=== PATIENT | female | born 1990 | race Caucasian/White ===

== ENCOUNTER 2020-06-10 08:00 | Outpatient (CLI) | payer OTHER ==
[2020-06-10 17:08] LABS: MUDS CUTOFF CONCENTRATIONS CUTOFF CONC BELOW:
[2020-06-10 17:31] LABS: BILIRUBIN,URINE NEGATIVE (NEGATIVE); GLUCOSE, URINE (UA) NEGATIVE (NEGATIVE); KETONES,URINE (UA) NEGATIVE (NEGATIVE); LEUKOCYTE ESTERASE, URINE NEGATIVE (NEGATIVE); NITRITE,URINE NEGATIVE (NEGATIVE); OCCULT BLOOD,URINE NEGATIVE (NEGATIVE); PH,URINE 7.5 PH (5.0-7.5); PROTEIN,URINE NEGATIVE (NEGATIVE); UROBILINOGEN,URINE 0.2 (NORMAL) E.U./dL (NORMAL)
[2020-06-10 17:33] LABS: CLARITY,URINE CLEAR (CLEAR)
[2020-06-10 17:39] LABS: AMPHETAMINE SCREEN,URINE NEGATIVE (NEGATIVE); BACTERIA,URINE None Seen /HPF (None Seen); BARBITURATE SCREEN,UR NEGATIVE (NEGATIVE); BENZODIAZEPINES SCREEN, URINE NEGATIVE (NEGATIVE); COCAINE SCREEN URINE NEGATIVE (NEGATIVE); METHADONE SCREEN, URINE NEGATIVE (NEGATIVE); METHAMPHETAMINES SCREEN, URINE NEGATIVE (NEGATIVE); OPIATE SCREEN, URINE NEGATIVE (NEGATIVE); OXYCODONE SCREEN, URINE NEGATIVE (NEGATIVE); PROPOXYPHENE SCREEN, URINE NEGATIVE (NEGATIVE); RBC,URINE 0-5 /HPF (0-5); SQUAMOUS EPITHELIAL CELL,UR RARE Squamous (<= Few); THC CANNABINOID SCREEN, URINE NEGATIVE (NEGATIVE); TRICYCLIC ANTIDEPRESSANT,URINE NEGATIVE (NEGATIVE); WBC,URINE 0-3 /HPF (0-5)
== END 2020-06-10 23:59 | disposition home or self-care (01) ==
LOC: LAB.R 08:00
PROVIDERS: ATTEND Obstetrics & Gynecology
DX: Z32.01 Encounter for pregnancy test, result positive (principal)
CPT/HCPCS: 80306; 81001; 87086

== ENCOUNTER 2020-06-15 17:41 | Outpatient (CLI) | payer OTHER ==
--- NOTE | 2020-06-15 19:25 | Ultrasound Report ---
PROCEDURE: OB First Trimester w/TV INDICATIONS: TEST POSITIVE OUTSIDE/PRIOR DATING DATA: Last menstrual period (LMP): 04/25/2020. LMP-based estimated date of delivery (SONIA): 01/30/2021. First dating scan (date and location): 06/15/2020. Estimated date of delivery (SONIA) from first dating scan: 01/28/2021. TECHNIQUE: Real-time scanning was performed of the fetus and maternal pelvic organs, with image documentation. Endovaginal scanning was also performed to better visualize the fetus and maternal ovaries. COMPARISON: None FINDINGS: Embryo: Single intrauterine gestational sac is seen with fetus noted. heart rate is 171 bpm. C rown-rump length measures 1.34 cm. Estimated gestational age is 7 weeks 4 days. Maternal organs: Right ovary is within normal limits. Corpus luteal cyst is seen in left ovary measur es 1.7 x 1.3 x 1.6 cm in size. Trace amount of free fluid is seen in left adnexa. Uterus is retroflex ed. IMPRESSION: 1. Single live intrauterine . heart rate is 171 bpm. Estimated gestational age is 7 we eks, 4 days. 2. Corpus luteal cyst in left ovary measures 1.7 x 1.3 x 1.6 cm in size. Trace amount of left adnexal free fluid. Reviewed by: Mike Lim MD on 06/15/2020 7:24 PM PDT Approved by: Mike Lim MD on 06/15/2020 7:24 PM PDT Station ID: [id number]
== END 2020-06-15 17:42 | disposition home or self-care (01) ==
LOC: DI 17:41
PROVIDERS: ATTEND Obstetrics & Gynecology
DX: O34.81 Maternal care for other abnormalities of pelvic organs, first trimester (principal); N83.12 Corpus luteum cyst of left ovary; Z3A.01 Less than 8 weeks gestation of pregnancy

== ENCOUNTER 2020-07-04 08:00 | Outpatient (CLI) | payer OTHER ==
[2020-07-05 22:26] LABS: CHLAMYDIA TRACHOMATIS DNA NEGATIVE (NEGATIVE); NEISSERIA GONORRHOEAE DNA NEGATIVE (NEGATIVE); TRICHOMONAS VAGINALIS DNA NEGATIVE (NEGATIVE)
== END 2020-07-04 23:59 | disposition home or self-care (01) ==
LOC: LAB.WC 08:00
PROVIDERS: ATTEND Obstetrics & Gynecology
DX: Z36.89 Encounter for other specified antenatal screening (principal)
CPT/HCPCS: 87491; 87591; 87661

== ENCOUNTER 2020-07-16 09:56 | Outpatient (CLI) | payer OTHER ==
[2020-07-16 10:20] LABS: BASOPHILS % (AUTO) 0.5 %; EOSINOPHILS # (AUTO) 0.1 10^3/uL (0.0-0.7); EOSINOPHILS % (AUTO) 0.8 %; HCT - HEMATOCRIT 39.8 % (37.0-47.0); HGB - HEMOGLOBIN 13.6 g/dL (12.0-16.0); LYMPHOCYTES # (AUTO) 2.1 10^3/uL (1.5-3.5); LYMPHOCYTES % (AUTO) 24.9 %; MEAN CORPUSCULAR HEMOGLOBIN 29.1 pg (27.0-31.0); MEAN CORPUSCULAR HGB CONC 34.2 g/dL (32.0-36.0); MEAN CORPUSCULAR VOLUME 85.2 fL (81.0-99.0); MEAN PLATELET VOLUME 9.7 fL (7.9-10.8); MONOCYTES # (AUTO) 0.5 10^3/uL (0.0-1.0); MONOCYTES % (AUTO) 5.6 %; NEUTROPHILS # (AUTO) 5.8 10^3/uL (1.5-6.6); NEUTROPHILS % (AUTO) 67.6 %; PLT - PLATELET COUNT 331 10^3/uL (130-450); RED BLOOD COUNT 4.67 10^6/uL (4.20-5.40); RED CELL DISTRIBUTION WIDTH 13.2 % (12.0-15.0); WHITE BLOOD COUNT 8.6 x10^3/uL (4.8-10.8)
[2020-07-17 11:27] LABS: HEPATITIS C ANTIBODY NON-REACTIVE (NON-REACTIVE)
[2020-07-17 11:28] LABS: HEPATITIS B SURFACE ANTIGEN NON-REACTIVE (NON-REACTIVE)
[2020-07-17 15:21] LABS: HIV AG/AB 4TH GEN NON-REACTIVE (NON-REACTIVE)
[2020-07-19 14:02] LABS: CIGARETTE SMOKER? NOT GIVEN; DONOR AGE: EGG RETRIEVAL NOT GIVEN; DONOR EGG N; HX OF NEURAL TUBE DEFECTS N; INSULIN DEPEND DIABETIC N; MATERNAL WEIGHT 194 lbs; NUMBER OF FETUSES 1; PREV PREGNANCY DOWN SYND N
== END 2020-07-16 09:57 | disposition home or self-care (01) ==
LOC: LAB 09:56
PROVIDERS: ATTEND Obstetrics & Gynecology
DX: Z36.89 Encounter for other specified antenatal screening (principal); Z36.8A Encounter for antenatal screening for other genetic defects
CPT/HCPCS: 36415; 85025; 86592; 86762; 86787; 86803; 86850; 86900; 86901; 87340; 87389

== ENCOUNTER 2020-08-14 14:44 | Outpatient (CLI) | payer OTHER ==
[2020-08-20 13:11] LABS: CIGARETTE SMOKER? NOT GIVEN; HISTORY OF NEURAL TUBE DEFECTS N; INSULIN DEPEND DIABETIC N; NUMBER OF FETUSES 1
[2020-08-20 13:12] LABS: PAPPA-A MoM 2.26
[2020-08-20 13:16] LABS: CALCULATED GESTATIONAL AGE 15.9
[2020-08-20 13:19] LABS: MATERNAL WEIGHT 198
== END 2020-08-14 14:45 | disposition home or self-care (01) ==
LOC: LAB 14:44
PROVIDERS: ATTEND Nurse Practitioner Obstetrics & Gynecology
DX: Z36.8A Encounter for antenatal screening for other genetic defects (principal)
CPT/HCPCS: 36415; 81220; 82105; 82677; 84163; 84702; 86336

== ENCOUNTER 2020-09-12 13:49 | Outpatient (CLI) | payer OTHER ==
--- NOTE | 2020-09-13 13:06 | Ultrasound Report ---
PROCEDURE: OB Detailed Eval INDICATIONS: SUPERVISION ON OUTSIDE/PRIOR DATING DATA: Last menstrual period (LMP): 04/25/2020. LMP-based estimated date of delivery (SONIA): 01/30/2021. First dating scan (date and location): 06/15/2020. Estimated date of delivery (SONIA) from first dating scan: 01/28/2021. The below data below was generated using the ultrasound SONIA of 01/28/2021 TECHNIQUE: Real-time scanning was performed of the fetus, with image documentation and biometric measurements. Endovaginal scanning: Not performed COMPARISON: 06/15/2020 FINDINGS: General: A single living intrauterine gestation is present. Presentation: Variable Placenta: Placental position is posterior, without previa. Amniotic fluid index: 15.1 cm, normal for gestational age. heart rate: 144 beats per minute. Maternal cervical canal: 4.6 cm long; normal length is 2.5 cm or more. biometrics: Biparietal diameter: 4.95 cm, 21 weeks 0 days Head circumference: 17.8 cm, 20 weeks 2 days Abdominal circumference: 16.58 cm, 21 weeks 4 days Femur length: 3.54 cm, 21 weeks 1 day Estimated gestational age from initial scan: 20 weeks 2 days. Composite gestational age from present scan: 20 weeks 5 days Estimated weight and percentile: 413 g, 92nd percentile Measurement variability in biometric dating: +/- 10 days from 12-20 weeks gestation, +/- 2 weeks from 20-30 weeks gestation, +/- 3 weeks at 30 weeks gestation or later. Anatomic survey: Neuro: Ventricles are normal at less than 10 mm. Cisterna magna is normal at 3-11 mm. Cerebellum i s normal in size and morphology. Nuchal skin fold: Normal at less than 6 mm between 14 and 20 weeks gestational age. Face: Nose and lips, facial profile are normal. Spine: No evidence for spina bifida. Heart: 4-chambered heart is present, however the outflow tracts without well seen. Diaphragm: Diaphragm is not well seen sonographically due to position. Stomach: Left-sided stomach is present. Kidneys: No hydronephrosis. Normal is less than 5 mm in 2nd trimester, less than 7 mm in 3rd trimester. Cord: 3 vessel cord has orthotopic insertion. Bladder: Normal in size. Extremities: All 4 extremities are visualized. IMPRESSION: Single living intrauterine fetus in variable presentation. Normal SHAVON. Expected interval growth. Estimated weight at the 92nd percentile. Ventricular outflow tracts and diaphragm not well seen secondary to gestational position. Recom mend follow-up. Remainder of the anatomic survey normal as above. Reviewed by: Jaydon Crawford MD on 09/13/2020 1:04 PM PDT Approved by: Jaydon Crawford MD on 09/13/2020 1:04 PM PDT Station ID: [id number]
== END 2020-09-12 13:50 | disposition home or self-care (01) ==
LOC: DI 13:49
PROVIDERS: ATTEND Nurse Practitioner Obstetrics & Gynecology
DX: Z34.02 Encounter for supervision of normal first pregnancy, second trimester (principal); Z36.8A Encounter for antenatal screening for other genetic defects

== ENCOUNTER 2020-09-26 18:44 | Outpatient (CLI) | payer OTHER ==
--- NOTE | 2020-09-27 10:31 | Ultrasound Report ---
PROCEDURE: OB F/U or Repeat INDICATIONS: SUPERVISION OF NORMAL FIRST OUTSIDE/PRIOR DATING DATA: Last menstrual period (LMP): To 1121. LMP-based estimated date of delivery (SONIA): 01/30/2021. First dating scan (date and location): 06/15/2020. Estimated date of delivery (SONIA) from first dating scan: 01/28/2021. The below data below was generated using the machine generated SONIA of 01/28/2021 TECHNIQUE: Real-time scanning was performed of the fetus, with image documentation and biometric measurements. COMPARISON: 06/15/2020 and 09/12/2020. FINDINGS: General: A single living intrauterine gestation is present. Presentation: Breech Placenta: Placental position is posterior, without previa. Amniotic fluid index: 20.4 cm, normal for gestational age. heart rate: 145 beats per minute. Maternal cervical canal: 4.56 cm long; normal length is 2.5 cm or more. Estimated gestational age from initial scan: 22 weeks, 2 days. Other: outflow tracts and diaphragm are visualized on the current study and are within normal l imits. stomach, bilateral kidneys and urinary bladder are visualized and are within normal limi ts. IMPRESSION: 1. outflow tracts and diaphragm are visualized and are within normal limits. 2. Single live intrauterine with fetus in breech presentation. heart rate is 145 bpm. Normal amount of amniotic fluid. Reviewed by: Mike Lim MD on 09/27/2020 10:30 AM PDT Approved by: Mike Lim MD on 09/27/2020 10:30 AM PDT Station ID: [id number]
== END 2020-09-26 18:45 | disposition home or self-care (01) ==
LOC: DI 18:44
PROVIDERS: ATTEND Advanced Practice Midwife
DX: O32.1XX0 Maternal care for breech presentation, not applicable or unspecified (principal); Z3A.22 22 weeks gestation of pregnancy

== ENCOUNTER 2020-10-29 08:49 | Outpatient (CLI) | payer OTHER ==
[2020-10-29 10:12] LABS: HCT - HEMATOCRIT 37.4 % (37.0-47.0); HGB - HEMOGLOBIN 12.6 g/dL (12.0-16.0); MEAN CORPUSCULAR HEMOGLOBIN 29.9 pg (27.0-31.0); MEAN CORPUSCULAR HGB CONC 33.7 g/dL (32.0-36.0); MEAN CORPUSCULAR VOLUME 88.8 fL (81.0-99.0); MEAN PLATELET VOLUME 9.5 fL (7.9-10.8); RED BLOOD COUNT 4.21 10^6/uL (4.20-5.40); WHITE BLOOD COUNT 11.6 x10^3/uL (4.8-10.8)
== END 2020-10-29 08:50 | disposition home or self-care (01) ==
LOC: LAB 08:49
PROVIDERS: ATTEND Nurse Practitioner Obstetrics & Gynecology
DX: Z34.00 Encounter for supervision of normal first pregnancy, unspecified trimester (principal); Z36.89 Encounter for other specified antenatal screening
CPT/HCPCS: 36415; 82950; 85027

== ENCOUNTER 2021-01-07 08:00 | Outpatient (CLI) | payer OTHER | END 2021-01-07 08:01 | disposition home or self-care (01) | LOC: LAB 08:00 | PROVIDERS: ATTEND Nurse Practitioner Obstetrics & Gynecology | DX: Z34.00 Encounter for supervision of normal first pregnancy, unspecified trimester (principal); Z36.85 Encounter for antenatal screening for Streptococcus B | CPT/HCPCS: 87797 ==

== ENCOUNTER 2021-02-02 12:43 | Observation (INO) | payer OTHER ==
[2021-02-02] MEDS ORDERED: CARBOPROST TROMETHAMINE 250 MCG/ML AMP IM PRN (12:57)
[2021-02-02] MEDS ORDERED: miSOPROStoL 200 MCG TABLET BC PRN (12:57)
[2021-02-02] MEDS ORDERED: OXYTOCIN 10 UNIT/ML VIAL IM PRN (12:57)
[2021-02-02] MEDS ORDERED: LIDOCAINE-MPF 1% 30 ML VIAL ID PRN (12:57)
[2021-02-02] MEDS ORDERED: OXYTOCIN/SODIUM CHLORIDE 500 ML IV PRN (12:57)
[2021-02-02] MEDS ORDERED: METHYLERGONOVINE 0.2 MG/ML VIAL IM PRN (12:57)
[2021-02-02] MEDS ORDERED: TRANEXAMIC ACID IN NACL 1,000 MG/100 ML BAG IV PRN (12:57)
[2021-02-02] MEDS ORDERED: SODIUM CHLORIDE FLUSH 0.9% 10 ML SYRINGE IVP PRN (12:57)
[2021-02-02] MEDS ORDERED: miSOPROStoL 100 MCG TABLET BC SCH (13:00)
[2021-02-02] MEDS ORDERED: LACTATED RINGERS 1,000 ML IV SCH (13:00)
[2021-02-02 13:53] LABS: BASOPHILS % (AUTO) 0.3 %; EOSINOPHILS # (AUTO) 0.1 10^3/uL (0.0-0.7); EOSINOPHILS % (AUTO) 0.8 %; HCT - HEMATOCRIT 39.8 % (37.0-47.0); HGB - HEMOGLOBIN 13.1 g/dL (12.0-16.0); LYMPHOCYTES # (AUTO) 2.4 10^3/uL (1.5-3.5); LYMPHOCYTES % (AUTO) 23.7 %; MEAN CORPUSCULAR HEMOGLOBIN 28.9 pg (27.0-31.0); MEAN CORPUSCULAR HGB CONC 32.9 g/dL (32.0-36.0); MEAN CORPUSCULAR VOLUME 87.7 fL (81.0-99.0); MEAN PLATELET VOLUME 10.3 fL (7.9-10.8); MONOCYTES # (AUTO) 0.7 10^3/uL (0.0-1.0); NEUTROPHILS # (AUTO) 6.7 10^3/uL (1.5-6.6); NEUTROPHILS % (AUTO) 67.7 %; PLT - PLATELET COUNT 274 10^3/uL (130-450); RED BLOOD COUNT 4.54 10^6/uL (4.20-5.40); RED CELL DISTRIBUTION WIDTH 14.6 % (12.0-15.0); WHITE BLOOD COUNT 9.9 x10^3/uL (4.8-10.8)
[2021-02-02] MEDS ORDERED: SODIUM CHLORIDE FLUSH 0.9% 10 ML SYRINGE IVP SCH (17:00)
[2021-02-02 17:53] VITALS: BP 115/81
--- NOTE | 2021-02-03 11:40 | PROVIDER PROGRESS NOTE ---
- HPI Chief Complaint: Other Current : Current EDU 01/30/21 Gestation 40 Weeks and 3 Days 1 Para 0 Vital Signs Temperature 36.9 C 02/02/21 13:01 Heart Rate 90 02/02/21 13:01 Respiratory Rate 17 02/02/21 13:01 Blood Pressure 130/90 H 02/02/21 13:01 O2 Saturation 99 02/02/21 13:01 Temperature 36.9 C 02/02/21 16:16 Heart Rate 94 02/02/21 17:52 Respiratory Rate 16 02/02/21 17:52 Blood Pressure 115/81 H 02/02/21 17:52 O2 Saturation 98 02/02/21 17:52 - Procedures OB Procedure Performed: NST Diagnosis/Indication for NST: Other NST Procedure: NST Procedure Start Date 02/02/21 Start Time 13:30 Stop Time 13:50 Vibroacoustic Stimulation Used No Patient States Movement Yes - Plan Plan: Babita is a 30yo @ 40.3wks gestation who presents to [facility] for outpatient cervical ripening with misoprostol. She denies vaginal bleeding or leakage of fluid. She states she feels very mild occasional menstrual-like cramping and denies contractions. She reports +FM. NST performed 02/02/2021 NST read 02/03/2021 NST reactive. FHR baseline 140s, moderate variability, + accels, no decels Contractions palpate mild every 3-6 minutes with soft resting tone SVE deferred. IV access achieved. Type and screen, hold pink drawn today and will be deferred tomorrow. Administered 50mcg BC misoprostol with continuous monitoring x 4 hours after dose administration. FHR Category I persistently. Pt denies presence of contractions and states they feel just the same as when she arrived. Pt released home with precautions. She intends to return tomorrow morning at 0730 for elective IOL. She verbalized understanding and agrees to above plan. She denies further questions or concerns at this time. FINAL DIAGNOSIS: 30yo @ 40.3wks gestation Pre-induction cervical ripening
== END 2021-02-02 18:20 | disposition home or self-care (01) ==
LOC: WFO 12:43 → FBP 12:48 → WFO 12:56 → FBP 12:57
PROVIDERS: ADMIT Nurse Practitioner Obstetrics & Gynecology; ATTEND Nurse Practitioner Obstetrics & Gynecology
DX: O48.0 Post-term pregnancy (principal); Z3A.40 40 weeks gestation of pregnancy
CPT/HCPCS: 36415; 85025; 86850; 86900; 86901; G0378

== ENCOUNTER 2021-02-03 07:40 | Inpatient (IN) | payer OTHER ==
[2021-02-03] MEDS ORDERED: LIDOCAINE-MPF 1% 30 ML VIAL ID PRN (08:15)
[2021-02-03] MEDS ORDERED: miSOPROStoL 200 MCG TABLET BC PRN (08:15)
[2021-02-03] MEDS ORDERED: TRANEXAMIC ACID IN NACL 1,000 MG/100 ML BAG IV PRN (08:15)
[2021-02-03] MEDS ORDERED: SODIUM CHLORIDE FLUSH 0.9% 10 ML SYRINGE IVP PRN (08:15)
[2021-02-03] MEDS ORDERED: OXYTOCIN 10 UNIT/ML VIAL IM PRN (08:15)
[2021-02-03] MEDS ORDERED: CARBOPROST TROMETHAMINE 250 MCG/ML AMP IM PRN (08:15)
[2021-02-03] MEDS ORDERED: METHYLERGONOVINE 0.2 MG/ML VIAL IM PRN (08:15)
[2021-02-03] MEDS ORDERED: OXYTOCIN/SODIUM CHLORIDE 500 ML IV PRN (08:15)
[2021-02-03] MEDS: miSOPROStoL 100 MCG TABLET BC SCH ×3 (08:55→16:43)
[2021-02-03] MEDS ORDERED: SODIUM CHLORIDE FLUSH 0.9% 10 ML SYRINGE IVP SCH (09:00)
--- NOTE | 2021-02-03 11:38 | PROVIDER PROGRESS NOTE ---
- HPI Chief Complaint: Other Current : Current EDU 01/30/21 Gestation 40 Weeks and 4 Days 1 Vital Signs Temperature 36.8 C 02/03/21 07:49 Heart Rate 97 02/03/21 07:49 Respiratory Rate 16 02/03/21 07:49 Blood Pressure 137/90 H 02/03/21 07:49 Temperature 36.8 C 02/03/21 07:49 Heart Rate 97 02/03/21 07:49 Respiratory Rate 16 02/03/21 07:49 Blood Pressure 137/90 H 02/03/21 07:49 O2 Saturation - Procedures OB Procedure Performed: NST NST Procedure: NST Procedure Start Time 13:30 Stop Time 13:50 - Plan Plan: (SERVICE DATE 02/02/2021) Babita is a 30yo @ 40.3wks gestation who presents to [facility] for outpatient cervical ripening with misoprostol. She denies vaginal bleeding or leakage of fluid. She states she feels very mild occasional menstrual-like cramping and denies contractions. She reports +FM. NST performed 02/02/2021 NST read 02/03/2021 NST reactive. FHR baseline 140s, moderate variability, + accels, no decels Contractions palpate mild every 3-6 minutes with soft resting tone SVE deferred. IV access achieved. Type and screen, hold pink drawn today and will be deferred tomorrow. Administered 50mcg BC misoprostol with continuous monitoring x 4 hours after dose administration. FHR Category I persistently. Pt denies presence of contractions and states they feel just the same as when she arrived. Pt released home with precautions. She intends to return tomorrow morning at 0730 for elective IOL. She verbalized understanding and agrees to above plan. She denies further questions or concerns at this time. FINAL DIAGNOSIS: 30yo @ 40.3wks gestation Pre-induction cervical ripening
--- NOTE | 2021-02-03 11:46 | HISTORY & PHYSICAL EXAMINATION ---
Admit History - Visit Reason Visit Reason: Other - : 1 Parity: 0 Premature: 0 Ectopic: 0 : 0 Care: positive: [facility] Risk/History: positive: None Complications This : positive: None Smoking Status: Never smoker - Mother's Labs Mother's Blood Type: positive: O Mother's RH: positive: Positive GBS: positive: Group B Step Negative Rubella Status: positive: Immune Review of Systems - Constitutional Constitutional: denies: Fatigue, Fever, Chills - Eyes Eyes: denies: Blurred vision, Spots in vision, Dipolpia - Cardiovascular Cariovascular: denies: Irregular heart rate, Palpitations, Chest pain, Edema - Respiratory Respiratory: denies: Cough, Wheezing, SOB at rest - Gastrointestinal Gastrointestinal: denies: Constipation, Diarrhea, Change in bowel habits, Nausea, Vomiting - Integumentary Integumentary: denies: Rash, Pruritis - Neurological Neurological: denies: Headache Physical - Abdominal Exam Vital Signs: Temp Pulse Resp BP Pulse Ox 36.8 C 97 16 137/90 H 02/03/21 07:49 02/03/21 07:49 02/03/21 07:49 02/03/21 07:49 Plan for Labor - Plan For Labor I expect patient to be DC'd or transferred within 96 hours.: Yes Plan for Labor: Babita is a 30yo @ 40.4wks gestation by LMP c/w 7.4wk U/S who presents to [facility] for elective IOL. She recieved 1 dose of 50mcg BC misoprostol yesterday afternoon for preinduction cervical ripening as an outpatient. She denies vaginal bleeding or leakage of fluid and she reports +FM. SVE deferred secondary to absence of notable contractions. Dating criteria: LMP 04/25/2020 Initial U/S 06/15/2020 @ 7.4wk c/w LMP dating Serial Exams - agree OB Hx: G1: Current PMHx: Anxiety/depression Surgical Hx: Tonsillectomy; wisdom teeth extraction Social Hx: Never smoker. No ETOH or IVDA. Partner Tam. They are both active duty [employer]. Family Hx: diabetes - MGM; HTN - MGM, mother; CAD - MGM; CVD - MGM; Asthma- father, brother; drug abuse - sister Medications: PNV; reglan PRN Allergies NKDA course: LMP: 04/25/2020 SONIA by LMP: 01/30/2021 Initial U/S: 06/15/2020 @ 7.4wks gives SONIA 01/28/2021 FINAL SONIA: 01/30/2021 O pos/Rubella immune VZV:immune Genetic testing: Serum integrated-neg. CF carrier-neg. FAS: Posterior placenta. SHAVON 15.1. Efw 92%. 3VC cardiac and diaphragm views not well seen. Follow up recommended 09/26/2020 completion WNL Glucola - 116 Influenza: 12/24 TDAP 11/12 COVID vax 1st 04/2020; 2nd 05/2020 GBS @ 36.5wks-NEGATIVE HSV: denies in self and partner Breast pump Rx 11/12 MOD: Anticipate ; Partner Tam; desires unmedicated delivery; surprise sex (thinks its a girl) pp contraception: pap: WNL Physical Exam: Normocephalic, atraumatic Heart RRR w/o M/G/R Lungs CTAB Abdomen gravid, soft, nontender EFW 3400g SVE deferred (last check closed/70/-3. Vertex by Jordon's. FHR baseline 140s, moderate variability, + accels, no decels Contractions palpate mild intermittently Bilateral LE's trace edema. Mood is good Assessment: 30yo @ 40.4wks gestation by LMP 7.4wk U/S. FHR Category I GBS neg Plan: Admit for elective induction of labor. 50mcg BC misoprostol q 4 hours for pre-induction cervical ripening. Continuous monitoring. Will place cervical ripening balloon following 12hr of misoprostol if not progressed. Pt verbalized understanding and agrees to above plan. She denies further questions or concerns at this time.
[2021-02-03] MEDS ORDERED: ZOLPIDEM 5 MG TABLET PO PRN (18:37)
--- NOTE | 2021-02-03 18:37 | PROVIDER PROGRESS NOTE ---
Labor Progress Note - Uterine Monitoring Uterine Monitoring Mode: positive: External toco Contraction Frequency (min/apart): 2-5 Contraction Intensity: positive: Mild Uterine Resting Tone: positive: Soft - Monitoring Monitor Mode: positive: External ultrasound Heart Rate Baseline: 135 Heart Rate Variability: positive: Moderate (6-25 bmp) Accelerations: positive: Present, 15x15 Decelerations: positive: None Strip Review: positive: Category I - Vaginal Exam Dilation (in cm): 1 Effacement (%): 50 Station: -2 Cervical Position: Posterior - Labor Progress Note Labor Progress Note/Additional Text: S: Starting to feel slightly more uncomfortable with contractions. She is coping well. She is intending and unmedicated delivery and her partner is supportive at the bedside. O: FHR baseline 135, moderate variability, + accels, no decels Contractions palpate mild every 2-6 minutes with soft resting tone SVE 1/70/-3, posterior. Vertex. Membranes intact Arnold cervical ripening balloon placed with 60cc sterile saline intrauterine and 60cc sterile saline vaginal and secured to right inner leg with mild tension. A: 30yo @ 40.4wks gestation by LMP c/w 7.4wk U/S Elective IOL FHR Category I GBS neg P: Expectant management throughout the night. Remove cervical ripening balloon in 12 hours and repeat SVE at that time or sooner if spontaneously expelled prior. Intermittent monitoring appropriate 4 hours after last dose of misoprostol administered. Jacuzzi PRN. Nitrous oxide PRN. Epidural per maternal request. Ambien to promote sleep tonight. Anticipate . Pt verbalized understanding and agrees to above plan. She denies further questions or concerns at this time.
[2021-02-04] MEDS: miSOPROStoL 100 MCG TABLET BC SCH (09:04)
[2021-02-04] MEDS: OXYTOCIN/SODIUM CHLORIDE 500 ML IV SCH (13:51)
[2021-02-04] MEDS: LACTATED RINGERS 1,000 ML IV SCH ×2 (13:52→23:54)
--- NOTE | 2021-02-04 14:55 | PROVIDER PROGRESS NOTE ---
Labor Progress Note - Uterine Monitoring Uterine Monitoring Mode: positive: External toco Contraction Frequency (min/apart): 2-7 Contraction Intensity: positive: Mild Uterine Resting Tone: positive: Soft - Monitoring Monitor Mode: positive: External ultrasound Heart Rate Baseline: 135 Heart Rate Variability: positive: Moderate (6-25 bmp) Accelerations: positive: Present, 15x15 Decelerations: positive: None Strip Review: positive: Category I - Vaginal Exam Dilation (in cm): 3 Effacement (%): 75 Station: -2 Cervical Position: Posterior - Labor Progress Note Labor Progress Note/Additional Text: S: Feeling menstrual-like cramping occasionally with contractions. Feels she is ready to initiate pitocin at this time. Her partner is supportive at the bedside. O: FHR baseline 135, moderate variability, + accels, no decels Contractions palpate mild every 2-7 minutes with soft resting tone SVE deferred at this time (previously 3/75/-2, posterior. Vertex. Membranes intact A: 30yo @ 40.5wks gestation by LMP c/w 7.4wk U/S Elective IOL (approaching postdates ) FHR Category I GBS neg P: Initiate pitocin with titration per protocol Continuous monitoring Jacuzzi PRN. Nitrous oxide PRN. Epidural per maternal request. Anticipate .
--- NOTE | 2021-02-04 15:04 | PROVIDER PROGRESS NOTE ---
Labor Progress Note - Vaginal Exam Dilation (in cm): 3 Effacement (%): 75 Station: -3 Cervical Position: Posterior - Labor Progress Note Labor Progress Note/Additional Text: SVE reveals cervical ripening balloon sitting in vaginal vault. SVE /-2, posterior. Vertex. Pt desires to continue cervical ripening with misoprostol 50mcg BC q 4 hours. Continuous monitoring. Anticipate . Consider initiation of pitocin following 2 additional doses of misoprostol.
--- NOTE | 2021-02-04 18:43 | PROVIDER PROGRESS NOTE ---
Labor Progress Note - Uterine Monitoring Uterine Monitoring Mode: positive: External toco Contraction Frequency (min/apart): 2-5 Contraction Intensity: positive: Moderate Uterine Resting Tone: positive: Soft - Monitoring Monitor Mode: positive: External ultrasound Heart Rate Baseline: 140 Heart Rate Variability: positive: Moderate (6-25 bmp) Accelerations: positive: Present, 15x15 Decelerations: positive: None Strip Review: positive: Category I - Vaginal Exam Dilation (in cm): 4 Effacement (%): 75 Station: -2 Cervical Position: Posterior - Labor Progress Note Labor Progress Note/Additional Text: S: Breathing through contractions at the bedside. State she feels pressure with contractions but denies pain. Partner supportive at the bedside. O: FHR baseline 140, moderate variability, + accels, no decels Contractions palpate moderate every 2-5 minutes with soft resting tone SVE 4/75/-2, posterior. Vertex. AROM moderate amount of light meconium stained fluid at 1830 Pitocin @ 8mU/mL A: 30yo @ 40.5wks gestation Elective IOL (approaching postdates) FHR Category I GBS neg P: Continue pitocin IOL with titration per protocol Continuous monitoring. Jacuzzi PRN. Nitrous oxide PRN. Epidural per maternal request. Anticipate .
[2021-02-05] MEDS ORDERED: ROPIVACAINE 0.2% 200 MG/100 ML BAG EP ONE (08:00)
--- NOTE | 2021-02-05 08:16 | PROVIDER PROGRESS NOTE ---
Labor Progress Note - Uterine Monitoring Uterine Monitoring Mode: positive: External toco Contraction Frequency (min/apart): 2-8 Contraction Intensity: positive: Moderate Uterine Resting Tone: positive: Soft - Monitoring Monitor Mode: positive: External ultrasound Heart Rate Baseline: 140 Heart Rate Variability: positive: Moderate (6-25 bmp) Accelerations: positive: Absent Decelerations: positive: Variable, Intermittent (<50% x20 min) Strip Review: positive: Category II - Vaginal Exam Dilation (in cm): 6 Effacement (%): 75 Station: -2 Cervical Position: Posterior - Labor Progress Note Labor Progress Note/Additional Text: S: Pt reports she is feeling exhausted and she desires an epidural for pain management so she can rest for the duration of her labor. She is tearful and feeling discouraged that she did not make more progress throughout the night. Her partner is supportive at the bedside. O: FHR baseline 140, moderate variability, no accels at present, 2 variable decelerations however FHR overall reassuring Contractions palpate moderate every 2-8 minutes with soft resting tone SVE 6/75/-2, posterior. Vertex. AROM x 14 hours Pitocin @ 12mU/mL A: 30yo @ 40.6wks gestation by LMP c/w 7.4wk U/S Elective IOL (approaching postdates ) GBS neg FHR Category II - overall reassuring P: Anesthesia notified for placement of epidural for pain management Continuous monitoring Encouraged rest with position changes with peanut ball in bed. Anticipate . Pt verbalized understanding and agrees to above plan. She denies further questions or concerns at this time.
[2021-02-05] MEDS ORDERED: diphenhydrAMINE INJ 50 MG/ML VIAL IVP PRN (08:47)
[2021-02-05] MEDS ORDERED: NALBUPHINE 10 MG/ML AMP IVP PRN (08:47)
[2021-02-05] MEDS ORDERED: ONDANSETRON 4 MG/2 ML VIAL IVP PRN ×2 (08:47→20:25)
[2021-02-05] MEDS: LACTATED RINGERS 1,000 ML IV SCH ×3 (08:47→22:21)
--- NOTE | 2021-02-05 08:49 | ANESTHESIA ---
Pre-Anesthesia VS, & Labs - Diagnosis active labor - Procedure labor epidural Vital Signs: Temp Pulse Resp BP Pulse Ox 36.4 C L 92 16 111/83 H 100 02/04/21 14:00 02/04/21 14:00 02/04/21 14:00 02/04/21 14:00 02/04/21 14:00 Height: 5 ft 7 in Weight (kg): 103.419 kg Body Mass Index: 35.6 BMI Classification: Obese - NPO >8 hours - Is Patient ?: Yes - Lab Results Current Lab Results: Laboratory Tests 02/03/21 08:50: Blood Type O POSITIVE, Antibody Screen NEGATIVE Home Medications and Allergies Active Medications Carboprost Tromethamine (Carboprost Tromethamine 250 Mcg/Ml Amp) 250 mcg IM Q15M PRN PRN Reason: Step 4: Hemorrhage protocol Stop: 02/08/21 08:17 Oxytocin/Sodium Chloride (Pitocin/Sodium Chloride) 500 mls @ 999 mls/hr IV PRN PRN; Protocol PRN Reason: POST- HEMORR PREVENTION Stop: 02/08/21 08:17 Tranexamic Acid (Tranexamic 1,000 Mg/100ml-Nacl) 1,000 mg in 100 mls @ 600 mls/hr IV .ONCE PRN PRN Reason: EBL >1200mL and within 3hr Stop: 02/08/21 08:17 Lactated Ringer's (Lr) 1,000 mls @ 100 mls/hr IV .Q10H PABLO Last Admin: 02/04/21 23:54 Dose: 100 mls/hr Documented by: Oxytocin/Sodium Chloride (Pitocin/Sodium Chloride) 500 mls @ 1 mls/hr IV TITR PABLO; Protocol Last Titration: 02/04/21 19:20 Dose: 10 milliunit/min, 10 mls/hr Documented by: Lidocaine HCl (Lidocaine-Mpf 1% 30 Ml Vial) 30 ml ID .ONCE PRN PRN Reason: PERINEAL REPAIR Stop: 02/08/21 08:17 Methylergonovine Maleate (Methylergonovine 0.2 Mg/Ml Vial) 0.2 mg IM .ONCE PRN PRN Reason: Step 2: Hemorrhage protocol Stop: 02/08/21 08:17 Misoprostol (Misoprostol 200 Mcg Tablet) 800 mcg BC .ONCE PRN PRN Reason: Step 3: Hemorrhage protocol Stop: 02/08/21 08:17 Misoprostol (Misoprostol 100 Mcg Tablet) 50 mcg BC Q4HR PABLO Last Admin: 02/04/21 09:04 Dose: 50 mcg Documented by: Oxytocin (Oxytocin 10 Unit/Ml Vial) 10 unit IM .ONCE PRN PRN Reason: Step one: If no IV access Stop: 02/08/21 08:17 Sodium Chloride (Sodium Chloride Flush 0.9% 10 Ml Syringe) 10 ml IVP 0100,0900,1700 [facility] Sodium Chloride (Sodium Chloride Flush 0.9% 10 Ml Syringe) 10 ml IVP PRN PRN PRN Reason: NEEDED PER PROVIDER ORDERS Zolpidem Tartrate (Zolpidem 5 Mg Tablet) 5 mg PO QPM PRN PRN Reason: Insomnia Last Admin: 02/03/21 21:17 Dose: 5 mg Documented by: Allergies/Adverse Reactions: Allergies Allergy/AdvReac Type Severity Reaction Status Date / Time No Known Drug Allergies Allergy Verified 02/03/21 13:37 Anes History & Medical History - Medical History Smoking Status: Never smoker - Obstetrical History : 1 Parity: 0 Events: reports: None Complications: reports: None Exam General: Alert, Oriented x3, Cooperative Dental: WNL Mouth Openin Fingerbreadth Neck Mobility: Normal Mallampati classification: II Respiratory: Lungs clear Cardiovascular: Regular rate Plan Anesthesia Type: Epidural Consent for Procedure(s) Verified and Reviewed: Yes Code Status: Attempt Resuscitation ASA classification: 2-Mild systemic disease Is this case an emergency?: No
--- NOTE | 2021-02-05 08:49 | ANESTHESIA PROCEDURE NOTE ---
Anesthesia Epidural Template - Patient Report Patient Reports: positive: Pain controlled - Plan Plan: positive: Continue current management
--- NOTE | 2021-02-05 09:30 | CONSULTATION NOTE ---
Consultation Report: [id number]- pt states she does not like how numb the epidural makes her feel. VSS. Offered to decrease rate, or turn off epidural pump. Pt requests to have epidural pump stopped at this time. Will re-evaluate.
--- NOTE | 2021-02-05 13:40 | PROVIDER PROGRESS NOTE ---
Labor Progress Note - Uterine Monitoring Uterine Monitoring Mode: positive: External toco Contraction Frequency (min/apart): 3-7 Contraction Intensity: positive: Moderate Uterine Resting Tone: positive: Soft - Monitoring Monitor Mode: positive: External ultrasound Heart Rate Baseline: 140 Heart Rate Variability: positive: Moderate (6-25 bmp) Accelerations: positive: Present, 15x15 Decelerations: positive: None Strip Review: positive: Category I - Vaginal Exam Dilation (in cm): 7 Effacement (%): 80 Station: -1 Cervical Position: Midposition - Labor Progress Note Labor Progress Note/Additional Text: S: Feeling much less anxiety. Anesthesia returned to slowly increase her epidura l coverage and she is feeling much better. Her partner is supportive at the bedside. O: FHR baseline 140s, moderate variability, + accels, no decels Contractions palpate moderate every 3-7 minutes with soft resting tone. SVE 7/80/-1, midposition, soft. Vertex. AROM x 19hrs - afebrile A: 30yo @ 40.6wks gestation Elective IOL (approaching postdates ) GBS neg FHR Category I P: Continue pitocin IOL with titration per protocol. Continuous monitoring. Encouraged rotation on peanut ball q 30 minutes. Anticipate .
[2021-02-05] MEDS: OXYTOCIN/SODIUM CHLORIDE 500 ML IV SCH (14:03)
--- NOTE | 2021-02-05 14:59 | ANESTHESIA PROCEDURE NOTE ---
Anesthesia Epidural Template - Patient Report Patient Reports: positive: Inadequate control - Other Comments Other Comments: Patient requested increase in epidural bolus amount. Stated she was uncomfortable with contractions. Epidural PIEB increased to 10ml every 50 mins.
--- NOTE | 2021-02-05 17:56 | PROVIDER PROGRESS NOTE ---
Labor Progress Note - Uterine Monitoring Uterine Monitoring Mode: positive: External toco Contraction Frequency (min/apart): 3-5 Contraction Intensity: positive: Moderate Uterine Resting Tone: positive: Soft - Monitoring Monitor Mode: positive: External ultrasound Heart Rate Baseline: 140 Heart Rate Variability: positive: Moderate (6-25 bmp) Accelerations: positive: Present, 15x15 Decelerations: positive: None Strip Review: positive: Category I - Vaginal Exam Dilation (in cm): 8 Effacement (%): 80 Station: -1 Cervical Position: Posterior - Labor Progress Note Labor Progress Note/Additional Text: S: Coping well with contractions and feels comfortable with epidural. Feels she can tell when she is having contractions but denies pain. She has increased anxiety and is tearful. Feels she knows she is headed for a delivery but is feeling very scared. Her partner Tam is supportive at the bedside. O: FHR baseline 140s, moderate variability, + accels, no decels Contractions palpate moderate every 3-5 min with soft resting tone. IUPC x 1 hour (MVUs - 150-200) SVE 8/80/-1, vertex. A: 30yo @ 40.6wks gestation Induction of labor (approaching postdates ) FHR Category I GBS neg P: Reviewed patient status with sale professional digital marketing physician and request consult for jamel arean delivery secondary to failure to progress. Dr. Swartz present at bedside and care handed over to physician.
[2021-02-05] MEDS ORDERED: ONDANSETRON 4 MG/2 ML VIAL ONE ×2 (17:59→20:17)
[2021-02-05] MEDS ORDERED: OXYTOCIN 10 UNIT/ML VIAL ONE (17:59)
[2021-02-05] MEDS ORDERED: LIDOCAINE MPF 2%-EPI 1:200000 20 ML VIAL ONE (17:59)
[2021-02-05] MEDS ORDERED: AZITHROMYCIN INJ 500 MG in SODIUM CHLORIDE 0.9% 250 ML IV STA (18:01)
[2021-02-05] MEDS ORDERED: CITRIC ACID/SODIUM CITRATE 15 ML UDC PO ONE (18:01)
[2021-02-05] MEDS ORDERED: ceFAZolin 2 GM in SODIUM CHLORIDE 0.9% 100ML 100 ML IV ONE (18:01)
--- NOTE | 2021-02-05 18:03 | HISTORY & PHYSICAL EXAMINATION ---
History and Physical - History and Physical OB H&P HPI: Patient is a 30-year-old at 40 weeks 5 days gestation by LMP consistent with 7-week ultrasound who presented for elective induction of labor. She had outpatient cervical ripening, as when she started on oxytocin after rupture of membranes. She made little change overnight started at 6 cm. Throughout the morning she changed a 7 cm then several hours later 8 cm. She had intermittent adequate contractions, but 6 hours later was still 8 cm. She was called failure to progress by TISH Cottrell. I was called in the consult with patient. No uterine bleeding. No fever or chills. All other symptoms reviewed and were negative except per HPI. PMH Anxiety with depression PSH Tonsillectomy, wisdom tooth extraction OB History SH Denies tobacco, alcohol, drugs Family History Maternal grandmother: Diabetes, hypertension, coronary artery disease, c erebrovascular disease Mother: Hypertension Father: Asthma Brother: Asthma Sister: Drug abuse Allergies No known drug allergies Medications vitamins, Reglan as needed Physical exam: Temp Pulse Resp BP Pulse Ox 98.8 F 109 H 16 124/74 100 02/05/21 17:00 02/05/21 17:00 02/05/21 17:00 02/05/21 17:00 02/04/21 14:00 General: Alert, oriented, no acute distress, visibly anxious Head: Normal cephalic atraumatic Eyes: PERRLA, extraocular motions intact. Respiratory: Normal rate of respiration. No accessory muscle use, normal respiratory effort. Cardiovascular: Regular rate and rhythm Abdomen: Gravid, nontender, nondistended Extremities: Normal range of motion Neuro: Oriented x3. Normal movements Psych: Appropriate mood and affect. Normal judgment and insight SVE: Last SVE by Mag Mahoney, FHT: Category 140 bpm baseline, moderate variability, accelerations present, no decelerations. [place]: Every 3 minutes Plan 30-year-old at 40 weeks 5 days gestation with failure to progress 1. Failure to progress - section was recommended. Risks, benefits and alternatives were discussed including but not limited to infection, bleeding that may require blood products or hysterectomy for life saving measures, injury to surrounding organs including but not limited to bowel, bladder, ureters, tubes and ovaries and/or the baby. Should injury occur it could require longer/additional surgery to repair. The patient stated understanding and desired to proceed. All questions were answered posed by patient. -2 g cefazolin and 500 mg azithromycin ordered for preoperative antibiotics -Epidural in place 2. 40 weeks gestation 3. Anxiety
[2021-02-05] MEDS ORDERED: METHYLERGONOVINE 0.2 MG/ML VIAL ONE (18:10)
[2021-02-05] MEDS ORDERED: LACTATED RINGERS 1,000 ML IV ONE ×2 (18:20→18:50)
[2021-02-05] MEDS ORDERED: PHENYLEPHRINE 10 MG/ML VIAL ONE ×2 (19:12→20:17)
[2021-02-05] MEDS ORDERED: ePHEDrine 50 MG/ML VIAL IVP ONE ×2 (19:12→20:17)
[2021-02-05] MEDS ORDERED: SODIUM CHLORIDE 0.9% 10 ML VIAL IVP ONE ×2 (19:29→20:17)
--- NOTE | 2021-02-05 20:01 | OPERATIVE REPORT ---
Operative Report - General Admit Date: 02/04/21 Planned Procedure: Primary low transverse section Pre-Op Diagnosis: Failure to progress, 40 weeks gestation, prolonged rupture of membranes Procedure Performed: Primary low transverse section Post Op Diagnosis: Failure to progress, Status post primary low transverse section - Procedure Note Primary Surgeon: Franklyn Swartz MD Secondary Surgeon: TISH Cottrell Anesthesia Provider: Cass Hitchcock CRNA Anesthesia Technique: Epidural Pathology: None IV Fluids (mL): 1,300 Estimated Blood Loss (mL): 1,100 Urine Output (mL): 1,250 - Other Other Information/Narrative: Patient was admitted at 40 weeks 4 days gestation for induction of labor induction. She had a 2-day induction, and received misoprostol for cervical ripening. She had AROM performed with a moderate amount of light meconium and was started on oxytocin. She had a slow progression of labor, and this morning remained 6 cm. She made slow progress to 7 cm, and again after several hours to 8 cm. She remained there for several checks without further change and at that point was also prolonged rupture of membranes, and the decision was made to move toward section. section was recommended. Risks, benefits and alternatives were discussed including but not limited to infection, bleeding that may require blood products or hysterectomy for life saving measures, injury to surrounding organs including but not limited to bowel, bladder, ureters, tubes and ovaries and/or the baby. Should injury occur it could require longer/additional surgery to repair. The patient stated understanding and desired to proceed. All questions were answered posed by patient. Prior to being taken to the OR, two grams of cefazolin IV and 500 mg of azithromycin were administered. The patient was taken to the operating room where regional anesthesia was found to be adequate. She was then prepared and draped in the usual sterile fashion in the dorsal supine position with a leftward tilt displacing the uterus. Arnold was draining to gravity. SCDs were on bilateral lower extremities. A pfannenstiel skin incision was then made with the scalpel and carried through to the underlying layer of fascia. The fascia was incised in the midline and the incision extended laterally with the Rivas scissors. The superior aspect of the facial incision was then grasped with the Mercy clamps, elevated and the underlying rectus muscles dissected off sharply. Attention was then turned to the inferior aspect of this incision which in a similar fashion was grasped, elevated with the Mercy clamps and the rectus muscle dissected off sharply. The rectus muscles were in the midline. The peritoneum identified, grasped with the pick-ups and entered sharply with the Metzenbaum scissors. The peritoneal incision was then extended superiorly and inferiorly with good visualization of the bladder. The bladder blade was inserted. The vesicouterine peritoneum was identified, grasped with the pick-ups, and entered sharply with Metzenbaum scissors. This incision was then extended laterally and the bladder flap created digitally. The bladder blade was reinserted. The lower uterine segment was identified and incised in a transverse fashion with the scalpel. The uterine incision was then extended bluntly laterally. Artificial rupture of membranes demonstrated light meconium stained fluid. The bladder blade was removed. The fetus was in a cephalic presentation. The infants head delivered atraumatically. The anterior shoulders were delivered followed by the posterior shoulders then the remainder of the body. The infants mouth and nose were bulb suctioned. Cord clamping was delayed for 1 minute. The umbilical cord was clamped times two and cut. The was taken to be with the patient. Cord blood gases were obtained. The placenta was removed with gentle traction. 30 units of oxytocin were added to IVF and allowed to run freely. The uterus was exteriorized and cleared of all clots and debris. The uterine incision was inspected and found to be without any extensions and was repaired with 0 Vicryl in a running, locked fashion. A second imbricating layer was performed. Upon inspection, the repaired hysterotomy was found to be hemostatic. The uterus was firm and returned to the abdomen. The gutters were cleared of all clots and debris. The peritoneum was closed with a running suture of 2-0 Vicryl. The muscles were reapproximated with 2-0 Vicryl. The fascia was reapproximated with 0 Vicryl in a running fashion. The subcutaneous tissue was closed with 2-0 Vicryl. The skin was closed in a subcuticular fashion with 3-0 Vicryl. The patient tolerated the procedure well. Sponge, lap and needle counts were correct times three. The patient was taken to the recovery room in stable condition.
[2021-02-05] MEDS ORDERED: OXYTOCIN/SODIUM CHLORIDE 500 ML IV PRN (20:05)
[2021-02-05] MEDS ORDERED: SODIUM CHLORIDE FLUSH 0.9% 10 ML SYRINGE IVP PRN (20:05)
[2021-02-05] MEDS ORDERED: ONDANSETRON ODT 4 MG TABLET TL PRN (20:05)
[2021-02-05] MEDS ORDERED: ROPIVACAINE 0.5% PF 20 ML AMPULE ONE (20:17)
[2021-02-05] MEDS ORDERED: KETOROLAC 30 MG/ML VIAL ONE (20:18)
[2021-02-05] MEDS ORDERED: ATROPINE ABBOJECT 1 MG/10 ML SYRINGE IVP PRN (20:25)
[2021-02-05] MEDS ORDERED: ePHEDrine 50 MG/ML VIAL IVP PRN (20:25)
[2021-02-05] MEDS ORDERED: MORPHINE 2 MG/ML CARPUJECT IVP PRN (20:25)
[2021-02-05] MEDS ORDERED: NALOXONE 0.4 MG/ML VIAL IVP PRN (20:25)
[2021-02-05] MEDS ORDERED: METOCLOPRAMIDE 10 MG/2 ML VIAL IVP PRN (20:25)
[2021-02-05] MEDS ORDERED: fentaNYL 100 MCG/2 ML VIAL IVP PRN (20:25)
[2021-02-05] MEDS ORDERED: HYDROmorphone 0.5 MG/0.5 ML SYRINGE IVP PRN (20:25)
[2021-02-05] MEDS ORDERED: LACTATED RINGERS 1,000 ML IV SCH ×2 (21:00)
[2021-02-05] MEDS: ACETAMINOPHEN 500 MG TABLET PO SCH (22:01)
[2021-02-06] MEDS: SIMETHICONE CHEW 80 MG TABLET PO PRN ×3 (00:22→17:24)
[2021-02-06] MEDS ORDERED: SODIUM CHLORIDE FLUSH 0.9% 10 ML SYRINGE IVP SCH (01:00)
[2021-02-06] MEDS: KETOROLAC 30 MG/ML VIAL IVP SCH ×3 (02:11→14:17)
--- NOTE | 2021-02-06 05:10 | PROVIDER PROGRESS NOTE ---
Progress Note Subjective Patient reports she is doing well. Lochia appropriate. Denies heavy bleeding. Ambulating. Pelvic and abdominal pain well-controlled. Tolerating oral intake. Diet: Regular. Voiding without difficulty. Passing flatus. Denies BM. Patient is bonding with baby in room Breast feeding going well. Some trouble keeping baby awake. Denies feeling lightheaded, dizzy or excessively fatigued. Objective Temp Pulse Resp BP Pulse Ox 98.3 H 95 16 112/60 97 02/06/21 04:38 02/06/21 04:38 02/06/21 04:38 02/06/21 04:38 02/06/21 04:38 General: Alert, oriented, no apparent distress. Cardiovascular: Regular rate. Regular rhythm. No murmur. Lungs: Clear to auscultation. Good air movement. No crackles or wheezes Abdomen: Uterus firm. Below umbilicus. Normal active bowel sounds. No guarding or rebound. Incision: Bandage in place. Extremities: Normal pedal pulses. No edema. No cords. Assessment and Plan 22-year-old status post primary low transverse section 1. day 1. -Routine care -Anticipate discharge tomorrow 2. hemorrhage -No signs or symptoms of hypovolemia currently. Will reassess throughout the day. -2 units PRBCs crossmatched 3. Anxiety -Much better controlled now post surgery.
[2021-02-06] MEDS: ACETAMINOPHEN 500 MG TABLET PO SCH ×3 (06:11→22:21)
[2021-02-06] MEDS: metroNIDAZOLE 250 MG TABLET PO SCH ×3 (07:43→17:23)
[2021-02-06] MEDS: DOCUSATE SODIUM 100 MG CAPSULE PO SCH ×2 (07:43→22:20)
[2021-02-06 08:06] LABS: BASOPHILS # (AUTO) 0.1 10^3/uL (0.0-0.1); BASOPHILS % (AUTO) 0.4 %; EOSINOPHILS % (AUTO) 0.3 %; HCT - HEMATOCRIT 32.3 % (37.0-47.0); HGB - HEMOGLOBIN 10.5 g/dL (12.0-16.0); LYMPHOCYTES # (AUTO) 1.9 10^3/uL (1.5-3.5); LYMPHOCYTES % (AUTO) 12.1 %; MEAN CORPUSCULAR HEMOGLOBIN 29.4 pg (27.0-31.0); MEAN CORPUSCULAR HGB CONC 32.5 g/dL (32.0-36.0); MEAN CORPUSCULAR VOLUME 90.5 fL (81.0-99.0); MEAN PLATELET VOLUME 10.3 fL (7.9-10.8); MONOCYTES # (AUTO) 0.9 10^3/uL (0.0-1.0); MONOCYTES % (AUTO) 5.5 %; NEUTROPHILS # (AUTO) 12.8 10^3/uL (1.5-6.6); PLT - PLATELET COUNT 221 10^3/uL (130-450); RED BLOOD COUNT 3.57 10^6/uL (4.20-5.40); RED CELL DISTRIBUTION WIDTH 14.7 % (12.0-15.0); WHITE BLOOD COUNT 15.8 x10^3/uL (4.8-10.8)
[2021-02-06] MEDS: cephALEXin 250 MG CAPSULE PO SCH ×2 (08:43→17:23)
[2021-02-06] MEDS ORDERED: SERTRALINE 50 MG TABLET PO SCH (09:00)
--- NOTE | 2021-02-06 12:42 | Discharge Plan ---
Discharge Plan Problem Reviewed?: Yes Disposition: Home, Self Care Condition: Good Prescriptions: Acetaminophen [Acetaminophen Extra Strength] 1,000 mg PO Q8H PRN #60 tablet PRN Reason: Pain Docusate Sodium 100Mg Capsule [Colace 100Mg Capsule] 100 - 200 mg PO BID PRN #60 cap PRN Reason: Constipation Ibuprofen [Motrin] 600 mg PO Q6H PRN #60 tab PRN Reason: Pain oxyCODONE [Roxicodone] 2.5 - 5 mg PO Q4H PRN #24 tablet PRN Reason: Severe Pain Diet: Regular Activity Restrictions: Additional Comments (see below) Shower Restrictions: Yes (see below) Driving Restrictions: Yes (see below) Additional Instructions or Follow Up instructions: PELVIC REST: Nothing in the vagina for 6 weeks: No intercourse, tampons, douching. You are at high risk of uterine infection during this time frame. WARNING SIGNS: Call for: -Fever greater than 100.5 -Pain that does not improve with pain medication -Heavy bleeding in which you are soaking a pad an hour for 2 hours in a row -Incision becomes hot, hard, red, starts to open, or leaks foul smelling fluid -Pain or swelling in one leg and not the other +/- shortness of breath or c hest pain LIFTING: No lifting more than 10# for 4 weeks DRIVING: No driving while on narcotics BATHING/WOUND CARE: Ok to shower. Let water run over the incision. Do not soap, scrub, or apply lo tion. Pat dry with a clean towel or kiko a executive chairman. The surgical stickers will start to peel off and you can remove them when they do. Otherwise, the provider will remove them at your one week follow-up appointment. OK to use an unscented sanitary napkin or clean washcloth to keep the incision dry if the belly folds over the incision. DISCHARGE MEDICATIONS: Ibuprofen 600 mg by mouth every 6 hours as needed for pain Acetaminophen 500-1000 mg by mouth every 8 hours as needed for pain Docusate 100-200 mg by mouth twice a day as needed for constipation Oxycodone 2.5-5 mg by mouth every 4 hours as needed for pain No Smoking: If you smoke, Please STOP! Call for help. Follow-up with: Franklyn Swartz MD [Provider Admit Priv/Credential] -
[2021-02-06] MEDS: oxyCODONE 5 MG TABLET PO PRN (12:43)
[2021-02-06] MEDS: IBUPROFEN 600 MG TABLET PO SCH (20:07)
[2021-02-07] MEDS: oxyCODONE 5 MG TABLET PO PRN ×3 (01:27→23:45)
[2021-02-07] MEDS: cephALEXin 250 MG CAPSULE PO SCH ×3 (01:28→17:40)
[2021-02-07] MEDS: IBUPROFEN 600 MG TABLET PO SCH ×4 (02:28→23:02)
[2021-02-07] MEDS: ACETAMINOPHEN 500 MG TABLET PO SCH ×3 (06:16→23:02)
[2021-02-07] MEDS: metroNIDAZOLE 250 MG TABLET PO SCH ×3 (09:26→17:41)
[2021-02-07] MEDS: DOCUSATE SODIUM 100 MG CAPSULE PO SCH ×2 (09:26→19:55)
--- NOTE | 2021-02-07 10:24 | PROVIDER PROGRESS NOTE ---
Progress Note Subjective Patient reports she is doing well. Lochia appropriate. Denies heavy bleeding. Ambulating. Pelvic and abdominal pain well-controlled. Tolerating oral intake. Diet: Regular. Voiding without difficulty. Passing flatus. Denies BM. Patient is bonding with baby in room. Currently in nursery due to phototherapy and bilirubin check. Breast feeding going well. Denies feeling lightheaded, dizzy or excessively fatigued. Objective Temp Pulse Resp BP Pulse Ox 97.9 F 93 16 118/71 98 02/07/21 07:59 02/07/21 07:59 02/07/21 07:59 02/07/21 07:59 02/07/21 07:59 General: Alert, oriented, no apparent distress. Cardiovascular: Regular rate. Regular rhythm. No murmur. Lungs: Clear to auscultation. Good air movement. No crackles or wheezes Abdomen: Uterus firm. Below umbilicus. Normal active bowel sounds. No guarding or rebound. Incision: Bandage in place. Extremities: Normal pedal pulses. No edema. No cords. Preoperative hemoglobin 13.1 Postoperative hemoglobin 10.5 Assessment and Plan day 2. -Routine care -Anticipate discharge tomorrow. Consider boarding after discharge if baby still under phototherapy. -Incision healing well. No concerns for hypovolemia. Encourage ambulation further today.
[2021-02-08] MEDS: cephALEXin 250 MG CAPSULE PO SCH (01:49)
[2021-02-08] MEDS: IBUPROFEN 600 MG TABLET PO SCH ×2 (05:05→13:36)
[2021-02-08] MEDS: ACETAMINOPHEN 500 MG TABLET PO SCH (06:42)
[2021-02-08 08:12] VITALS: BP 113/75
[2021-02-08] MEDS: DOCUSATE SODIUM 100 MG CAPSULE PO SCH (08:30)
--- NOTE | 2021-02-08 10:21 | DISCHARGE SUMMARY ---
Discharge Summary Admit Date: 02/03/21 Discharge Date: 02/08/21 Discharging Provider: Franklyn Swartz MD Code Status: Attempt Resuscitation Condition at Discharge: Good Discharge Disposition: 01 Home, Self Care - DIAGNOSES Admission Diagnoses: 40 weeks gestation Elective induction of labor Discharge Diagnoses with Status of Each Condition: Status post primary low transverse section Failure to progress Hemorrhage - HPI History of Present Illness: Subjective Patient reports she is doing well. Lochia appropriate. Denies heavy bleeding. Ambulating. Pelvic and abdominal pain well-controlled. Tolerating oral intake. Diet: Regular. Voiding without difficulty. Passing flatus. Denies BM. Patient is bonding with baby in room, receiving phototherapy. Breast feeding going well. Denies feeling lightheaded, dizzy or excessively fatigued. Objective Temp Pulse Resp BP Pulse Ox 97.8 F 90 18 113/75 100 02/08/21 08:00 02/08/21 08:00 02/08/21 08:00 02/08/21 08:00 02/08/21 08:00 General: Alert, oriented, no apparent distress. Cardiovascular: Regular rate. Regular rhythm. No murmur. Lungs: Clear to auscultation. Good air movement. No crackles or wheezes Abdomen: Uterus firm. Below umbilicus. Normal active bowel sounds. No guarding or rebound. Extremities: Normal pedal pulses. No edema. No cords. - HOSPITAL COURSE Hospital Course: Patient was admitted at 40 weeks 4 days gestation for elective induction of labor at term. She had a long induction spending 3 days, but the evening of her third day, she had failure to progress making little filter changer the previous day. Primary low transverse section was called and was complicated by a hemorrhage of 1100 mL. She was stable postoperatively and received no blood products. Her course was unremarkable and was discharged on postoperative day 3. remained admitted for continued phototherapy. - ALLERGIES Allergies/Adverse Reactions: Allergies Allergy/AdvReac Type Severity Reaction Status Date / Time No Known Drug Allergies Allergy Verified 02/03/21 13:37 - MEDICATIONS Home Medications: Ambulatory Orders Medication Instructions Recorded Confirmed Acetaminophen [Acetaminophen Extra 1,000 mg PO Q8H PRN #60 tablet 02/06/21 Strength] Docusate Sodium 100Mg Capsule 100 - 200 mg PO BID PRN #60 cap 02/06/21 [Colace 100Mg Capsule] Ibuprofen [Motrin] 600 mg PO Q6H PRN #60 tab 02/06/21 oxyCODONE [Roxicodone] 2.5 - 5 mg PO Q4H PRN #24 tablet 02/06/21 - LABS Result Diagrams: 02/06/21 06:57 - FOLLOW UP Follow Up: Follow-up in 1 week with Franklyn Swartz MD for incision check - TIME SPENT Time Spent in Discharge (Minutes): 20
== END 2021-02-08 13:42 | disposition home or self-care (01) | DRG 787 ==
LOC: WFO 07:40 → FBP 07:44 → WFO 08:14 → FBP 08:15 → OBSVTOIN 02-04 14:15 → FBP 02-05 18:45
PROVIDERS: ADMIT Nurse Practitioner Obstetrics & Gynecology; ATTEND Nurse Practitioner Obstetrics & Gynecology
PROC: 10D00Z1 Extraction of Products of Conception, Low, Open Approach (ICD-10-PCS; 2021-02-05)
PROC: 10907ZC Drainage of Amniotic Fluid, Therapeutic from Products of Conception, Via Natural or Artificial Opening (ICD-10-PCS; principal; 2021-02-05 18:15)
DX: O62.0 Primary inadequate contractions (principal); O72.1 Other immediate postpartum hemorrhage; O77.0 Labor and delivery complicated by meconium in amniotic fluid; Z3A.40 40 weeks gestation of pregnancy; Z37.0 Single live birth; O42.12 Full-term premature rupture of membranes, onset of labor more than 24 hours following rupture; O99.214 Obesity complicating childbirth
CPT/HCPCS: 36415; 85025; 86850; 86900; 86901; 86920; 96365; A9270; J2210; J7120

== ENCOUNTER 2021-05-09 12:44 | Emergency (ER) | payer OTHER ==
[2021-05-09 12:51] VITALS: BP 130/85
--- NOTE | 2021-05-09 13:03 | ED Physician Documentation ---
History of Present Illness - Stated complaint Stated Complaint: L BREAST PX - Chief complaint Chief Complaint: General - History obtained from History obtained from: Patient - Additonal information Additional information: 30-year-old woman who is breast-feeding her 3-month-old with 2 weeks of constant left superior breast mass that is painful. No redness, drainage, fevers, chills, myalgias. Review of Systems Constitutional: denies: Fever, Chills Ears: reports: Reviewed and negative Nose: reports: Reviewed and negative Cardiac: reports: Reviewed and negative PD PAST MEDICAL HISTORY - Present Medications Home Medications: Ambulatory Orders Medication Instructions Recorded Confirmed Acetaminophen [Acetaminophen Extra 1,000 mg PO Q8H PRN #60 tablet 02/06/21 Strength] Docusate Sodium 100Mg Capsule 100 - 200 mg PO BID PRN #60 cap 02/06/21 [Colace 100Mg Capsule] Ibuprofen [Motrin] 600 mg PO Q6H PRN #60 tab 02/06/21 oxyCODONE [Roxicodone] 2.5 - 5 mg PO Q4H PRN #24 tablet 02/06/21 - Allergies Allergies/Adverse Reactions: Allergies Allergy/AdvReac Type Severity Reaction Status Date / Time No Known Drug Allergies Allergy Verified 05/09/21 12:51 - Social History Smoking Status: Never smoker PD ED PE NORMAL - Vitals Vital signs reviewed: Yes - General General: Alert and oriented X 3, No acute distress - Derm Derm: Other (There is a palpable firm mildly tender mass at 12:00 without signs of infection. Exam done with Florecita STARK present and chaperoning. This is the left breast.) - Neuro Neuro: Alert and oriented X 3, Normal speech - Psych Psych: Normal mood, Normal affect Results - Vitals Vitals: Vital Signs - 24 hr 05/09/21 12:47 Temperature 35.7 C L Heart Rate 75 Respiratory 16 Rate Blood Pressure 130/85 H O2 Saturation 100 PD MEDICAL DECISION MAKING - ED course ED course: 30 F with L breast mass. Prelim per radiologist, c/w cyst without hyperemia. Clinically no infection. Pt to F/U with PCP and breast surgeon, poss eval for aspiration. Departure - Departure Disposition: 01 Home, Self Care Clinical Impression: Benign breast cyst in female Condition: Good Record reviewed to determine appropriate education?: Yes Instructions: Breast Cyst Follow-Up: Radha Pedroza MD [Provider Admit Priv/Credential] - Comments: As discussed, looks like a simple breast cyst. Needs to be followed by your PCM or breast surgeon. Name/number for breat surgeon on this form, you may need referral from your PCM, contact them for followup. Return if worse, for fevers. Discharge Date/Time: 05/09/21 14:33
== END 2021-05-09 14:33 | disposition home or self-care (01) ==
LOC: ED 12:44
DX: N60.02 Solitary cyst of left breast (principal)
CPT/HCPCS: 99282; 99284